=== PATIENT | female | born 1980 | race Caucasian/White ===

== ENCOUNTER 2017-02-03 21:00 | Inpatient (IN) | payer OTHER ==
--- NOTE | ~2017-02-03 | CR181 ---
[facility] A Service of [facility] & [facility] RADIOLOGY TEXT RESULTS PATIENT: JOSEFINA TAYLOR LOCATION: [facility] P132-1 : [birth year] UNIT #: [id number] AGE: [address]: You Mi MD SEX: F ORDER DR: [id number] [facility] [address] [place] [address]. [place], [place] [address] [id number] MR#: [id number] Acc #: [id number] NAME: JOSEFINA TAYLOR : 1980 SEX: F STUDY DATE/TIME: 02/04/2017 17:36 UNIT: [facility] ROOM: [facility] STUDY DESCRIPTION: CR Lumbar Spine 2 or 3 Views Attending Physician: You Mi M.D. Ordering Physician: You Mi M.D. Primary Care Physician: Primary Care Physician No MEDICAL IMAGING REPORT This report is preliminary unless electronic signature is present EXAM Lumbar spine series 02/04/2017 HISTORY 36-year-old female complaining of low back pain and tailbone pain after slip and fall from bathtub today. FINDINGS No fracture or other acute osseous abnormality is demonstrated. Postop changes posterior fusion at L4-5 and L5-S1. No evidence of hardware failure. Disc spaces above the fusion levels are unremarkable. Lumbar vertebral alignment is normal. IMPRESSION 1. No fracture or other acute osseous abnormality. 2. Postop changes posterior fusion at L4-5 and L5-S1. Dictated by... Gilles Marcos M.D. THIS IS AN ELECTRONICALLY VERIFIED REPORT Gilles Marcos M.D. at 02/05/2017 12:52 PM JOHNATHON/flo TD: 02/05/2017 06:56 JOB #: [id number] MEDICAL IMAGING REPORT Page 1 of 1 COPY
--- NOTE | ~2017-02-03 | CR219 ---
[facility] A Service of [facility] & [facility] RADIOLOGY TEXT RESULTS PATIENT: JOSEFINA TAYLOR LOCATION: [facility] P132-1 : [birth year] UNIT #: [id number] AGE: [address]: You Mi MD SEX: F ORDER DR: [id number] [facility] [address] [place], [place] [address] [id number] MR#: [id number] Acc #: [id number] NAME: JOSEFINA TAYLOR : 1980 SEX: F STUDY DATE/TIME: 02/04/2017 17:45 UNIT: [facility] ROOM: [facility] STUDY DESCRIPTION: CR Sacrum and Coccyx Min 2 Vie Attending Physician: You Mi M.D. Ordering Physician: You Mi M.D. Primary Care Physician: Primary Care Physician No MEDICAL IMAGING REPORT This report is preliminary unless electronic signature is present EXAM Sacral coccygeal spine 02/04/2017 HISTORY 36-year-old female complaining of back pain and tailbone pain after injury. Slipped and fell from bathtub today. TECHNIQUE AP and lateral radiographs of the sacrum and coccyx. FINDINGS The examination is negative. No fracture or other acute osseous abnormality is demonstrated. Sacroiliac joints are unremarkable. Lumbar spine series reported separately. IMPRESSION Negative sacrococcygeal spine series. Dictated by... Gilles Marcos M.D. THIS IS AN ELECTRONICALLY VERIFIED REPORT Gilles Marcos M.D. at 02/05/2017 12:52 PM JOHNATHON/real TD: 02/05/2017 05:55 JOB #: [id number] MEDICAL IMAGING REPORT Page 1 of 1 COPY
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
--- NOTE | ~2017-02-03 | HP ---
Unit #: [id number] #: [id number] Patient: JOSEFINA TAYLOR [id number] [place] [address] [id number] I MR#: [id number] NAME: JOSEFINA TAYLOR ROOM: P132 Age: 36 Sex: F Admission Date: 02/04/2017 : 1980 Attending Physician: You Mi M.D. Admitting Physician: You Mi M.D. Primary Care Physician: Primary Care Physician No HISTORY AND PHYSICAL HISTORY OF PRESENT ILLNESS The patient is a 36-year-old female admitted to [address] [place] [address] on 02/04/2017 for suicidal ideation. PAST MEDICAL HISTORY 1. Hypertension. 2. History of diabetes which has resolved after weight loss. 3. Asthma. PAST SURGICAL HISTORY 1. Spine surgery times five 2. Bilateral tubal ligation 3. PE tubes SOCIAL HISTORY She is disabled. She lives with her fiance. She smokes a half pack of cigarettes daily, denies alcohol and drug use. FAMILY MEDICAL HISTORY Noncontributory. ALLERGIES NSAIDS, Advair, metformin and vancomycin CURRENT MEDICATIONS 1. Lisinopril 2. HCTZ 3. Seroquel 4. Bactrim REVIEW OF SYSTEMS CONSTITUTIONAL: No fever or chills. HEENT: Denies any sore throat, ear pain or runny nose. CARDIOVASCULAR: Denies chest pain, irregular heart rhythm or palpitations. CHEST: Denies shortness of breath or cough. No hemoptysis. GASTROINTESTINAL: Denies nausea, vomiting, diarrhea or chronic constipation. ENDOCRINE: Denies history of increased thirst or urination. No recent significant weight loss or gain. GENITOURINARY: Denies dysuria, frequency, or hematuria. SKIN: Complains of wounds on her legs. HEMATOLOGIC: Denies history of increased bleeding or bruising. MUSCULOSKELETAL: Denies any hot, swollen joints. No generalized muscle Unit #: [id number] #: [id number] Patient: JOSEFINA TAYLOR pain. NEUROLOGIC: Denies problems with vision or speech. No frequent, severe headaches. No numbness, tingling or weakness in any extremities. Denies loss of bladder or bowel control. PHYSICAL EXAM GENERAL: She is awake, alert and oriented in no acute distress. VITAL SIGNS: Temperature 98.0, heart rate 84, respiration 18, blood pressure 138/95. HEIGHT: 5'8". WEIGHT: 197 pounds. SKIN: Warm and dry without rash. She has two lesions on her legs. See consult for more information. HEENT: Normocephalic. TMs not viewed. Oral and nasal passages clear. Conjunctivae clear. PERRLA. EOMs intact. NECK: Supple without lymphadenopathy or thyromegaly. HEART: Regular rate and rhythm without murmur. LUNGS: Clear. ABDOMEN: Soft, nontender. : Not done. EXTREMITIES: No evidence of cyanosis, clubbing or edema. Moves all without focal deficit. NEUROLOGICAL: Grossly within normal limits. Cranial Nerves: II: Visual castro are intact. III, IV AND : Extraocular movements are intact. Pupils are equal, round and reactive to light. V: Facial sensation is grossly normal. VII: Facial movements and expression are normal. VIII: Auditory acuity grossly intact. IX, X: Uvula is midline. Phonation is normal. XI: Patient shrugs shoulders and turns head normally. XII: Tongue protrudes in the midline. Sensory and Motor Function: Sensory and motor sensation is grossly normal. Motor: moves all extremities well. IMPRESSION 1. Psychiatric admission. 2. Hypertension. 3. History of diabetes. 4. Asthma. 5. Leg lacerations. RECOMMENDATIONS Psychiatric per psychiatrist. MEDICAL: No contraindication to participate in facility activities. MEDICAL PROGNOSIS Fair. MEDICAL CONDITION Stable. Dictated by... Karmen Hough A.P.R.N. Unit #: [id number] #: [id number] Patient: JOSEFINA TAYLOR KIRSTY/audi TD: 02/06/2017 04:14 JOB #: [id number] HISTORY AND PHYSICAL Page 1 of 1 X KARMEN HOUGH APRN HISTORY AND PHYSICAL
--- NOTE | ~2017-02-03 | CO ---
Unit #: [id number] #: [id number] Patient: JOSEFINA TAYLOR [id number] [place] [address] [id number] I MR#: [id number] NAME: JOSEFINA TAYLOR. ROOM: P132 Age: 36 Sex: F Admission Date: 02/04/2017 : 1980 Attending Physician: You Mi M.D. Primary Care Physician: Primary Care Physician No Consultation Date: 02/04/2017 CONSULTATION REPORT ORDERING PROVIDER Dr. Mi. REASON FOR CONSULTATION Wounds on legs. SUBJECTIVE The patient reports that about a week ago she was seen at the hospital for ulcerations on her bilateral legs. She reports that the ulcerations are painful, but not itchy. However, she does feel like they started off as bug bites. She has a history of diabetes, but it is controlled now that she has lost weight. At the hospital, she was given IV antibiotics and discharged home with prescriptions, but unable to fill them due to the cost. She does report that she sleeps outside and is unsure if she was bitten by any type of bug. OBJECTIVE The patient has two approximately 2 cm ulcers on her bilateral ankles. They are at this time crusted. There is surrounding erythema, but no streaking or heat when palpated. There is no drainage or bleeding. ASSESSMENT Leg wounds. PLAN Plan is to restart the Bactrim and Keflex that she was discharged on and continue to monitor. Dictated by... Steve Helton/yelena TD: 02/06/2017 01:11 JOB #: [id number] Unit #: [id number] #: [id number] Patient: JOSEFINA TAYLOR CONSULTATION REPORT Page 1 of 1 X VIKASH DAVILA APRN CONSULTATION REPORT
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
--- NOTE | ~2017-02-03 | PN ---
Unit #: [id number] #: [id number] Patient: JOSEFINA TAYLOR [id number] [facility] [address] [place] [address] [id number] I MR#: [id number] NAME: JOSEFINA TAYLOR ROOM: 32 Age: 36 Sex: F Admission Date: 02/04/2017 : 1980 Attending Physician: You Mi M.D. Admitting Physician: You Mi M.D. Primary Care Physician: Primary Care Physician Cristal RODRIGUEZ PROGRESS NOTES DATE 02/05/2017 DISCUSSION The patient states that she is feeling somewhat better today and appears significantly brighter and less dysphoric. Should she sustain progress discharge should take place as early as tomorrow as per her request. Dictated by... You Mi M.D. CB/audi TD: 02/06/2017 02:45 JOB #: [id number] [facility] PROGRESS NOTES Page 1 of 1 X You Mi MD X PROGRESS NOTE
--- NOTE | ~2017-02-03 | CO ---
Unit #: [id number] #: [id number] Patient: JOSEFINA TAYLOR [id number] [facility] [address] [place] [address] [id number] I MR#: [id number] NAME: JOSEFINA TAYLOR. ROOM: P132 Age: 36 Sex: F Admission Date: 02/04/2017 : 1980 Attending Physician: You Mi M.D. Primary Care Physician: Primary Care Physician No Consultation Date: 02/05/2017 CONSULTATION REPORT ORDERING PROVIDER Dr. Mi. REASON FOR CONSULT Low back pain following a fall. SUBJECTIVE The patient reports that she was getting out of the shower. She was dizzy and slipped and fell and hit upper back. She reports pain in her back, but a lot of it is related to prior back surgeries. She reports that she is supposed to be seeing pain management. She has in the past been on Neurontin with good relief. She reports that since falling, she is having bilateral back spasms and pain that shoots down her leg. OBJECTIVE The patient did have some mild swelling around L4-L5 and it was tender to palpate. No bruising was noted. She has normal DTRs and limited range of motion. ASSESSMENT Low back pain. PLAN Plan is to restart gabapentin and muscle relaxer. Dictated by... Steve Helton/yelena TD: 02/05/2017 22:47 JOB #: [id number] Unit #: [id number] #: [id number] Patient: JOSEFINA TAYLOR CONSULTATION REPORT Page 1 of 1 X VIKASH DAVILA APRN CONSULTATION REPORT
[~2017-02-03 21:00] MED LIST: ABILIFY; ADVAIR 2501 DISK W/D; ADVAIR 2501 DISK W/D PO; ADVAIR 5001 DISK W/D PO; ALBUTEROL17 GM; ALBUTEROL17 GM INH; ALPRAZOLAM PO; AMOXICILLIN PO; AMOXIL500 M1 PO; ATARAX PO; AUGMENTIN PO; BACTRIM DS TABL1 TA1 PO; BUPROPION HCL150 M2 PO; BYDUREON2 MG SQ; CELEXA PO; CIPRO PO; CLARITIN10 M2 PO; CLARITIN10 MG PO; COMBIVENT INH14.7 GM; COMBIVENT INH14.7 GM INH; CORTIZONE-10 AN28 GM TOP; CYMBALTA; DULOXETINE HCL20 MG PO; FLEXERIL PO; FLEXERIL10 MG PO; HCTZ PO; HUMALOG100 U/M1; HYDROCODONE BITA5 GM PO; IBUPROFEN25 GM PO; IBUPROFEN800 MG PO; KEFLEX500 MG PO; KLONOPIN PO; LASIX20 MG PO; LEVEMIR SUBQ; LIPITOR40 MG PO; LISINOPRIL10 MG PO; LODINE200 MG PO; LORTAB 10/500 T1 TAB PO; LORTAB 5/500 TA1 TA1 PO; LORTAB 7.5-5001 TAB PO; MEDROL DOSEPAK4 MG DOB; MEDROL PO; MOBIC15 MG PO; NAPROSYN500 MG PO; NAPROXEN PO; NEURONTIN PO; NEURONTIN800 MG PO; NORCO 10/325 TA1 TAB PO; NORCO 7.5/325 T1 TAB PO; NORVASC10 MG PO; NYSTATIN100000 UNI PO; OCUFLOX10 ML AD; OMEGA 3 FISH OI1 CAP PO; ORUDIS75 M1 DOB; ORUDIS75 M1 PO; OXYCODONE HCL15 MG PO; PERCOCET10 PO; PHENERGAN PO; SEROQUEL PO; SEROQUEL XR300 M1 PO; SINGULAIR PO; TIZANIDINE HCL4 M1 PO; TRAZODONE; TYLENOL #3 PO; VICODIN 5/1 TAB 5/50 PO; VICODIN 5/500 T1 TAB PO; VICODIN PO; VITAMIN D50000 UNIT PO; ZITHROMAX PO; [UNRECOGNIZED DRUG - OTHER]
[2017-02-04 11:54] LABS: URINE APPEARANCE TURBID; URINE BILIRUBIN NEG (NEG); URINE BLOOD 2+ (NEG); URINE COLOR YELLOW; URINE GLUCOSE NEG (NEG); URINE KETONE NEG (NEG); URINE LEUKOCYTE ESTERASE NEG (NEG); URINE NITRATE NEG (NEG); URINE PROTEIN 1+ (NEG); URINE SPECIFIC GRAVITY 1.024 (1.003-1.035)
[2017-02-04 11:56] LABS: URINE BACTERIA AUWI 1+ (NEGATIVE); URINE SQUAMOUS EPITHELIAL CELL MOD /[HPF]
[2017-02-04 12:18] LABS: AMPHETAMINE NEG (NEG); BARBITURATES NEG (NEG); BENZODIAZEPINES NEG (NEG); COCAINE NEG (NEG); MARIJUANA POS (NEG); OPIATES NEG (NEG); TRICYCLIC ANTIDEPRESSANTS POS (NEG); U METHADONE NEG (NEG)
[2017-02-05 11:32] LABS: BASOPHIL% 0.5 % (0-2.5); EOSINOPHIL# 0.1 X10e3 (0-0.7); EOSINOPHIL% 1.2 % (0.0-7.0); HEMATOCRIT 46.6 % (35.0-45.0); HEMOGLOBIN 15.2 gm/dL (12.0-16.0); LYMPHOCYTE# 2.4 X10e3 (1.0-3.5); LYMPHOCYTE% 25.1 % (17.0-45.0); MEAN CELL VOLUME 88.6 FL (83-96); MEAN CORPUSCULAR HEMOGLOBIN 28.8 PG (28-34); MEAN CORPUSCULAR HGB CONC 32.6 g/dL (30-36); MEAN PLATELET VOLUME 9.4 FL (6.5-11.5); MONOCYTE# 0.6 X10e3 (0-1.0); MONOCYTE% 6.4 % (3.0-12.0); NEUTROPHIL# 6.5 X10e3 (1.5-7.1); NEUTROPHIL% 66.8 % (40-75); PLATELET COUNT 273 X10e3 (140-420); RED BLOOD COUNT 5.26 X10e (3.90-5.30); RED CELL DISTRIBUTION WIDTH 14.4 % (11.0-15.5); WHITE BLOOD COUNT 9.7 X10e3 (4.0-10.5)
[2017-02-05 11:33] LABS: DIFF IND NO
[2017-02-05 11:46] LABS: ALBUMIN SERUM 3.9 g/dL (3.5-5.0); BILIRUBIN,TOTAL 0.7 mg/dL (0.2-2.0); BUN/CREATININE RATIO 12.85; CALCIUM SERUM 9.3 mg/dL (8.4-10.2); CREATININE SERUM 0.7 mg/dL (0.6-1.4); GLOM FILT RATE Estimated 111.5 mL/min (>60); POTASSIUM 3.5 mmol/L (3.5-5.1); PROTEIN TOTAL SERUM 7.4 g/dL (6.0-8.3)
== END 2017-02-06 14:20 | DRG 885 ==
LOC: P1S 02-04 01:13
PROVIDERS: Specialist
DX: F33.1 Major depressive disorder, recurrent, moderate (principal); R45.851 Suicidal ideations; L97.319 Non-pressure chronic ulcer of right ankle with unspecified severity; L97.329 Non-pressure chronic ulcer of left ankle with unspecified severity; E11.9 Type 2 diabetes mellitus without complications; Z88.1 Allergy status to other antibiotic agents; Z88.8 Allergy status to other drugs, medicaments and biological substances; I10 Essential (primary) hypertension; J45.909 Unspecified asthma, uncomplicated; F17.210 Nicotine dependence, cigarettes, uncomplicated; M54.5 Low back pain; Z91.410 Personal history of adult physical and sexual abuse; F43.0 Acute stress reaction
CPT/HCPCS: 72100; 72220; 80053; 80307; 81003; 83036; 85025